=== PATIENT | female | born 1945 | race Caucasian/White ===

== ENCOUNTER 2018-09-21 09:34 | Emergency (ER) | payer OTHER ==
[~2018-09-21] VITALS: Ht 147.3 cm; Wt 72.6 kg
[~2018-09-21 09:34] MED LIST: LEVAQUIN500 MG PO; LIPITOR20 MG PO; LYRICA 50MG50 MG PO; TYLENOL WITH C1 EACH PO; Z.0.LISINOPRIL-HCT1 PO; Z.0.OMEPRAZOLE20 M1 PO; Z.0.PRAVASTATIN SOD2 PO
--- OUTSIDE RECORDS SUMMARY | 2018-09-21 09:38 | XMS REPORT | Summary of Care ---
Author Author [facility] Outpatient Imaging [facility] (formerly [facility] Outpatient Imaging [facility] Address Unknown Phone Unavailable Encounter AUDIE Rojas(SABINE) [phone] Date(s): 12/02/16 - 12/02/16 [facility] Outpatient Imaging [facility] [address] [facility], [address] [place] [address] [phone] Discharge Disposition: Home or Self Care Attending Physician: Quinn Guerrero MD Vital Signs No data available for this section Problem List Condition Effective Dates Status Health Status Informant Cystocele with vault Active prolapse(Confirmed) Hyperlipidemia(Confi Active rmed) Hypertension(Confirm Active ed) Reflux(Confirmed) Active Sleep Active apnea(Confirmed) Allergies, Adverse Reactions, Alerts Substance Reaction Severity Status Keflex Active Toradol Active Vicodin Active Medications No data available for this section Results No data available for this section Immunizations No data available for this section Procedures Procedure Date Related Diagnosis Body Site Hysterectomy Temporal artery biopsy Social History Social History Type Response Smoking Status Former smoker; Type: Cigarettes; Stopped at age: 18; Exposure to Tobacco Smoke None; Cigarette Smoking Last 365 Days No; Reg Smoking Cessation Counseling No Assessment and Plan No data available for this section
--- OUTSIDE RECORDS SUMMARY | 2018-09-21 09:38 | XMS REPORT | Summary of Care ---
Author Author [facility] Organization [facility] Address Unknown Phone Unavailable Encounter AUDIE Rojas(SABINE) [id number] Date(s): 10/24/14 - 10/25/14 [facility] [address] [employer] provided by [employer] [place] [address]- Discharge Disposition: Home Attending Physician: Michelle Brooks MD Admitting Physician: Michelle Brooks MD Referring Physician: Michelle Brooks MD Vital Signs 1 2 3 Most recent to oldest [Reference Range]: 147.32 cm (10/24/14 5:48 AM) 147.32 cm (10/13/14 2:47 PM) Height 1 2 3 Most recent to oldest [Reference Range]: 98.0 DegF (10/25/14 7:38 AM) 97.8 DegF (10/25/14 3:15 AM) 99 DegF (10/24/14 11:15 PM) Temperature Oral [96.4-99.1 DegF] 1 2 3 Most recent to oldest [Reference Range]: 154/82 mmHg *HI* (10/25/14 7:38 AM) 115/65 mmHg (10/25/14 3:15 AM) 134/69 mmHg (10/24/14 11:15 PM) Blood Pressure [90-140/60-90 mmHg] 1 2 3 Most recent to oldest [Reference Range]: 18 BRMIN (10/25/14 7:38 AM) 18 BRMIN (10/25/14 3:15 AM) 18 BRMIN (10/24/14 11:15 PM) Respiratory Rate [14-20 BRMIN] 1 2 3 Most recent to oldest [Reference Range]: 93 bpm (10/25/14 7:38 AM) 98 bpm (10/25/14 3:15 AM) 103 bpm *HI* (10/24/14 11:15 PM) Peripheral Pulse Rate [60-100 bpm] 1 2 3 Most recent to oldest [Reference Range]: 72.273 kg (10/24/14 5:48 AM) 72.273 kg (10/13/14 2:47 PM) Weight 1 2 3 Most recent to oldest [Reference Range]: 33.3 m2 (10/24/14 5:48 AM) 33.3 m2 (10/13/14 2:47 PM) Body Mass Index Problem List Condition Effective Dates Status Health Status Informant Cystocele with vault Active prolapse(Confirmed) Hyperlipidemia(Confi Active rmed) Hypertension(Confirm Active ed) Reflux(Confirmed) Active Sleep Active apnea(Confirmed) Allergies, Adverse Reactions, Alerts Substance Reaction Severity Status Keflex Active Toradol Active Vicodin Active Medications acetaminophen 1,000 mg, 100 mL, Route: IV, Drug form: INJ, Q6H, Dosing Weight 72.273, kg, PRN Pain 1-3/Temp > 100.4 F, Start date: 10/24/14 11:10:00, Duration: 30 day, Stop date: 11/23/14 11:09:00 Notes: Infuse over 15 minutesDo not exceed 4gm/day of acetaminophen MEDICAT ION WASTE Product Size: 1000 mgProduct Wasted: ___ mg Start Date: 10/24/14 Stop Date: 10/25/14 Status: Discontinued docusate 100 mg, 1 cap, Route: PO, Drug form: CAP, BID, Dosing Weight 72.273, kg, Start d ate: 10/24/14 17:00:00, Duration: 30 day, Stop date: 11/23/14 9:00:00 Notes: (Same as: Colace) (Do Not Crush) Start Date: 10/24/14 Stop Date: 10/25/14 Status: Discontinued docusate sodium 100 mg oral capsule 100 mg=1 cap, PO, BID, # 60 cap, 3 Refill(s) Start Date: 10/25/14 Status: Ordered flumazenil 0.2 mg, 2 mL, Route: IVP, Drug form: INJ, PRN, Dosing Weight 72.273, kg, PRN Jessee zodiazepine Reversal, Initial dose, Start date: 10/24/14 11:19:00, Duration: 30 day, Stop date: 11/23/14 11:18:00 Notes: (Same as: Romazicon) Start Date: 10/24/14 Stop Date: 10/24/14 Status: Discontinued Lactated Ringers Injection IV 1,000 mL 1,000 mL, Rate: 125 ml/hr, Infuse over: 8 hr, Route: IV, Dosing Weight 72.273 kg , Total Volume: 1,000, Start date: 10/24/14 11:10:00, Duration: 30 day, Stop jacquelyn e: 11/23/14 11:09:00 Start Date: 10/24/14 Stop Date: 10/25/14 Status: Discontinued Levaquin 500 mg, Route: IVPB, ONCE, Dosing Weight 72.273, kg, Start date: 10/24/14 7:55:0 0, Stop date: 10/24/14 7:55:00 Start Date: 10/24/14 Stop Date: 10/24/14 Status: Completed Levaquin 500 mg, 100 mL, Route: IVPB, Drug form: INJ, [id number], Dosing Weight 72.273, kg, Start date: 10/25/14 8:00:00, Duration: 30 day, Stop date: 11/23/14 8:00:00 Notes: (Same as:Levaquin) Start Date: 10/25/14 Stop Date: 10/25/14 Status: Discontinued Lovenox 40 mg, 0.4 mL, Route: SUB-Q, Drug form: INJ, [id number], Dosing Weight 72.273, kg, Start date: 10/25/14 8:00:00, Duration: 30 day, Stop date: 11/23/14 8:00:00 Notes: (Same as: Lovenox) Start Date: 10/25/14 Stop Date: 10/25/14 Status: Discontinued Macrobid 100 mg oral capsule 100 mg=1 cap, PO, BID, X 10 day, # 20 cap, 2 Refill(s) Start Date: 10/25/14 Stop Date: 11/24/14 Status: Ordered metroNIDAZOLE (SCIP) 500 mg, 100 mL, Route: IVPB, Drug form: INJ, ONCE, Dosing Weight 72.273, kg, Sta rt date: 10/24/14 7:55:00, Stop date: 10/24/14 7:55:00 Notes: (Same as: Shahnaz) Avoid alcohol. Start Date: 10/24/14 Stop Date: 10/24/14 Status: Completed metroNIDAZOLE (SCIP) 500 mg, 100 mL, Route: IVPB, Drug form: INJ, Q8H, Dosing Weight 72.273, kg, Star t date: 10/24/14 16:00:00, Duration: 3 doses or times, Stop date: 10/25/14 8:00: 00 Notes: (Same as: Shahnaz) Avoid alcohol. Start Date: 10/24/14 Stop Date: 10/25/14 Status: Completed morphine Sulfate 1 mg, 0.5 mL, Route: IVP, Drug form: INJ, Q4H, Dosing Weight 72.273, kg, PRN Justin n Score 6-10, Start date: 10/24/14 17:29:00, Duration: 30 day, Stop date: 17:28:00 Notes: (Same as:MORPhine Sulfate) Start Date: 10/24/14 Stop Date: 10/25/14 Status: Discontinued morphine Sulfate 1 mg, 0.5 mL, Route: IVP, Drug form: INJ, Q5Min, Dosing Weight 72.273, kg, PRN P ain Score 4-6, Start date: 10/24/14 11:19:00, Duration: 5 doses or times, Stop d ate: 10/25/14 0:00:00 Notes: (Same as:MORPhine Sulfate) Start Date: 10/24/14 Stop Date: 10/24/14 Status: Completed naloxone 0.04 mg, 0.1 mL, Route: IVP, Drug form: INJ, Q2MIN, Dosing Weight 72.273, kg, AK N Narcotic Reversal, Start date: 10/24/14 11:19:00, Duration: 8 doses or times, Stop date: 10/25/14 0:00:00 Notes: Same as Narcan Start Date: 10/24/14 Stop Date: 10/24/14 Status: Discontinued omeprazole 20 mg, Route: PO, Drug form: ECCAP, BID-Before Meals, Dosing Weight 72.273, kg, Start date: 10/25/14 7:30:00, Duration: 30 day, Stop date: 11/23/14 16:30:00 Start Date: 10/25/14 Stop Date: 10/25/14 Status: Deleted ondansetron 4 mg, Route: IVP, ONCE, Dosing Weight 72.273, kg, PRN Nausea & Vomiting, Start date: 10/24/14 11:19:00 Start Date: 10/24/14 Stop Date: 10/24/14 Status: Completed Phenergan 6.25 mg, Route: IVPB, ONCE, Dosing Weight 72.273, kg, Start date: 10/24/14 11:58 :00, Stop date: 10/24/14 11:58:00 Start Date: 10/24/14 Stop Date: 10/24/14 Status: Completed Protonix 40 mg, 1 tab, Route: PO, Drug form: ECTAB, BID, Start date: 10/25/14 9:00:00, Du ration: 30 day, Stop date: 11/23/14 17:00:00 Notes: Tablet should not be chewed or crushed.(Same as: Protonix) Start Date: 10/25/14 Stop Date: 10/25/14 Status: Discontinued Pyridium 100 mg oral tablet 100 mg=1 tab, PO, TID, PRN Dysuria, X 10 day, # 40 tab, 1 Refill(s) Start Date: 10/25/14 Stop Date: 11/14/14 Status: Ordered tramadol 50 mg, 1 tab, Route: PO, Drug form: TAB, Q8H, Dosing Weight 72.273, kg, PRN Pain Score 4-6, Start date: 10/24/14 11:10:00, Duration: 48 hr, Stop date: 10/26/14 11:09:00 Notes: Not to exceed 400mg/day. (Same As: Ultram) Start Date: 10/24/14 Stop Date: 10/25/14 Status: Discontinued tramadol 50 mg oral tablet 50 mg=1 tab, PO, Q8H, PRN Pain Score 4-6, # 40 tab, 0 Refill(s) Start Date: 10/25/14 Stop Date: 11/14/14 Status: Ordered Tylenol 325 mg oral tablet 650 mg=2 tab, PO, Q4H, 0 Refill(s) Start Date: 10/24/14 Status: Ordered Results BLOOD BANK RESULTS 1 2 3 Most recent to oldest [Reference Range]: A POS *Unknown* (10/24/14 6:00 AM) ABO/Rh Negative (10/24/14 6:00 AM) Antibody Scrn ELECTROLYTES 1 2 3 Most recent to oldest [Reference Range]: 144 mEq/L (10/25/14 3:35 AM) 140 mEq/L (10/24/14 11:22 AM) 140 mEq/L (10/24/14 8:30 AM) Sodium Lvl [135-145 mEq/L] 3.9 mEq/L (10/25/14 3:35 AM) 3.3 mEq/L *LOW* (10/24/14 11:22 AM) 4.2 mEq/L (10/24/14 8:30 AM) Potassium Lvl [3.5-5.1 mEq/L] 108 mEq/L (10/25/14 3:35 AM) 107 mEq/L (10/24/14 11:22 AM) 108 mEq/L (10/24/14 8:30 AM) Chloride Lvl [95-109 mEq/L] 28 mEq/L (10/25/14 3:35 AM) 23 mEq/L *LOW* (10/24/14 11:22 AM) 24 mEq/L (10/24/14 8:30 AM) CO2 [24-32 mEq/L] 11.9 mEq/L (10/25/14 3:35 AM) 13.3 mEq/L (10/24/14 11:22 AM) 12.2 mEq/L (10/24/14 8:30 AM) AGAP [10.0-20.0 mEq/L] CHEM PANEL 1 2 3 Most recent to oldest [Reference Range]: 1.2 mg/dL (10/25/14 3:35 AM) 1.2 mg/dL (10/24/14 11:22 AM) 1.0 mg/dL (10/24/14 8:30 AM) Creatinine Lvl [0.5-1.4 mg/dL] 46 mL/min/1.73m2 1 *NA* (10/25/14 3:35 AM) 46 mL/min/1.73m2 2 *NA* (10/24/14 11:22 AM) 57 mL/min/1.73m2 3 *NA* (10/24/14 8:30 AM) eGFR 10 mg/dL (10/25/14 3:35 AM) 12 mg/dL (10/24/14 11:22 AM) 12 mg/dL (10/24/14 8:30 AM) BUN [7-22 mg/dL] 10 (10/24/14 11:22 AM) B/C Ratio [6-25] 106 mg/dL *HI* (10/25/14 3:35 AM) 136 mg/dL *HI* (10/24/14 11:22 AM) 116 mg/dL *HI* (10/24/14 8:30 AM) Glucose Lvl [70-99 mg/dL] 5.7 g/dL *LOW* (10/24/14 11:22 AM) Total Protein [6.4-8.4 g/dL] 2.9 g/dL *LOW* (10/24/14 11:22 AM) Albumin Lvl [3.5-5.0 g/dL] 2.8 g/dL (10/24/14 11:22 AM) Globulin [2.0-4.0 g/dL] 1.0 (10/24/14 11:22 AM) A/G Ratio [0.7-1.6] 8.0 mg/dL *LOW* (10/25/14 3:35 AM) 8.0 mg/dL *LOW* (10/24/14 11:22 AM) 8.7 mg/dL (10/24/14 8:30 AM) Calcium Lvl [8.5-10.5 mg/dL] 21 unit/L (10/24/14 11:22 AM) ALT [0-65 unit/L] 17 unit/L (10/24/14 11:22 AM) AST [0-37 unit/L] 67 unit/L (10/24/14 11:22 AM) Alk Phos [39-136 unit/L] 0.6 mg/dL (10/24/14 11:22 AM) Bili Total [0.2-1.3 mg/dL] 1Result Comment: The eGFR is calculated using the CKD-EPI formula. In most young, healthy individuals the eGFR will be >90 mL/min/1.73m2. The eGFR declines with age. An eGFR of 60-89 may be normal in some populations, particularly the elderly, for whom the CKD-EPI formula has not been extensively validated. Use of the eGFR is not recommended in the following populations: Individuals with unstable creatinine concentrations, including patients and those with serious co-morbid conditions. Patients with extremes in muscle mass or diet. The data above are obtained from the National Kidney Disease Education Program ( NKDEP) which additionally recommends that when the eGFR is used in patients with extremes of body mass index for purposes of drug dosing, the eGFR should be mul tiplied by the estimated BMI. 2Result Comment: The eGFR is calculated using the CKD-EPI formula. In most young, healthy individuals the eGFR will be >90 mL/min/1.73m2. The eGFR declines with age. An eGFR of 60-89 may be normal in some populations, particularly the elderly, for whom the CKD-EPI formula has not been extensively validated. Use of the eGFR is not recommended in the following populations: Individuals with unstable creatinine concentrations, including patients and those with serious co-morbid conditions. Patients with extremes in muscle mass or diet. The data above are obtained from the National Kidney Disease Education Program ( NKDEP) which additionally recommends that when the eGFR is used in patients with extremes of body mass index for purposes of drug dosing, the eGFR should be mul tiplied by the estimated BMI. 3Result Comment: The eGFR is calculated using the CKD-EPI formula. In most young, healthy individuals the eGFR will be >90 mL/min/1.73m2. The eGFR declines with age. An eGFR of 60-89 may be normal in some populations, particularly the elderly, for whom the CKD-EPI formula has not been extensively validated. Use of the eGFR is not recommended in the following populations: Individuals with unstable creatinine concentrations, including patients and those with serious co-morbid conditions. Patients with extremes in muscle mass or diet. The data above are obtained from the National Kidney Disease Education Program ( NKDEP) which additionally recommends that when the eGFR is used in patients with extremes of body mass index for purposes of drug dosing, the eGFR should be mul tiplied by the estimated BMI. IMMUNOLOGY 1 2 3 Most recent to oldest [Reference Range]: Negative *NA* (10/13/14 2:10 PM) HIV 1/2 Ab [Negative] Negative *NA* (10/13/14 2:10 PM) Hep Bs Ag [Negative] Negative *NA* (10/13/14 2:10 PM) Hep B Core IgM [Negative] Negative *NA* (10/13/14 2:10 PM) Hep A IgM [Negative] Negative *NA* (10/13/14 2:10 PM) Hep C Ab HEMATOLOGY 1 2 3 Most recent to oldest [Reference Range]: 6.9 K/CMM (10/25/14 3:35 AM) 13.3 K/CMM *HI* (10/24/14 11:22 AM) 5.1 K/CMM (10/24/14 8:30 AM) WBC [3.7-10.4 K/CMM] 3.31 M/CMM *LOW* (10/25/14 3:35 AM) 3.98 M/CMM *LOW* (10/24/14 11:22 AM) 3.51 M/CMM *LOW* (10/24/14 8:30 AM) RBC [4.20-5.40 M/CMM] 10.0 g/dL *LOW* (10/25/14 3:35 AM) 11.7 g/dL *LOW* (10/24/14 11:22 AM) 10.5 g/dL *LOW* (10/24/14 8:30 AM) Hgb [12.0-16.0 g/dL] 29.5 % *LOW* (10/25/14 3:35 AM) 35.7 % *LOW* (10/24/14 11:22 AM) 31.7 % *LOW* (10/24/14 8:30 AM) Hct [36.0-48.0 %] 89.3 fL (10/25/14 3:35 AM) 89.6 fL (10/24/14 11:22 AM) 90.4 fL (10/24/14 8:30 AM) MCV [80.0-98.0 fL] 30.2 pg (10/25/14 3:35 AM) 29.3 pg (10/24/14 11:22 AM) 30.0 pg (10/24/14 8:30 AM) MCH [27.0-31.0 pg] 33.8 g/dL (10/25/14 3:35 AM) 32.7 g/dL (10/24/14 11:22 AM) 33.2 g/dL (10/24/14 8:30 AM) MCHC [32.0-36.0 g/dL] 13.4 % (10/25/14 3:35 AM) 13.2 % (10/24/14 11:22 AM) 13.4 % (10/24/14 8:30 AM) RDW [11.5-14.5 %] 192 K/CMM (10/25/14 3:35 AM) 220 K/CMM (10/24/14 11:22 AM) 229 K/CMM (10/24/14 8:30 AM) Platelet [133-450 K/CMM] 8.1 fL (10/25/14 3:35 AM) 8.5 fL (10/24/14 11:22 AM) 8.2 fL (10/24/14 8:30 AM) MPV [7.4-10.4 fL] 69.4 % (10/25/14 3:35 AM) 74.0 % (10/24/14 11:22 AM) 49.3 % (10/24/14 8:30 AM) Segs [45.0-75.0 %] 10.0 % (10/24/14 11:22 AM) Bands [0.0-11.0 %] 18.8 % *LOW* (10/25/14 3:35 AM) 10.0 % *LOW* (10/24/14 11:22 AM) 41.0 % *HI* (10/24/14 8:30 AM) Lymphocytes [20.0-40.0 %] 0.0 % (10/24/14 11:22 AM) Atypical Lymphs [<=0.0 %] 7.4 % (10/25/14 3:35 AM) 6.0 % (10/24/14 11:22 AM) 8.4 % (10/24/14 8:30 AM) Monocytes [2.0-12.0 %] 4.3 % *HI* (10/25/14 3:35 AM) 0.7 % (10/24/14 8:30 AM) Eosinophils [0.0-4.0 %] 0.1 % (10/25/14 3:35 AM) 0.6 % (10/24/14 8:30 AM) Basophils [0.0-1.0 %] 4.8 K/CMM (10/25/14 3:35 AM) 11.2 K/CMM *HI* (10/24/14 11:22 AM) 2.5 K/CMM (10/24/14 8:30 AM) Segs-Bands # [1.5-8.1 K/CMM] 1.3 K/CMM (10/25/14 3:35 AM) 1.3 K/CMM (10/24/14 11:22 AM) 2.1 K/CMM (10/24/14 8:30 AM) Lymphocytes # [1.0-5.5 K/CMM] 0.5 K/CMM (10/25/14 3:35 AM) 0.8 K/CMM (10/24/14 11:22 AM) 0.4 K/CMM (10/24/14 8:30 AM) Monocytes # [0.0-0.8 K/CMM] 0.3 K/CMM (10/25/14 3:35 AM) Eosinophils # [0.0-0.5 K/CMM] Normal (10/24/14 11:22 AM) RBC Morph Normal (10/24/14 11:22 AM) Plt Morph 13.6 seconds (10/13/14 2:10 PM) PT [12.0-14.7 seconds] 1.04 (10/13/14 2:10 PM) INR [0.85-1.17] 28.8 seconds (10/24/14 11:22 AM) 31.6 seconds (10/13/14 2:10 PM) PTT [22.9-35.8 seconds] Immunizations No data available for this section Procedures Procedure Date Related Diagnosis Body Site Hysterectomy Temporal artery biopsy Social History Social History Type Response Smoking Status Former smoker; Type: Cigarettes; Stopped at age: 18; Exposure to Tobacco Smoke None; Cigarette Smoking Last 365 Days No; Reg Smoking Cessation Counseling No Assessment and Plan Extracted from: Title: TELE RN progress Note Author: Michaela Manjarrez MD Date: 10/25/14 R3 TELE RN Progress Note S: Patient doing well this morning. No complaints. passing flatus. Patient is ambulating slowly in the room. Pain well controlled on po meds O: VitalsTmp(F)Tmp(C)[id number] 10/25 03:1597.836.84onlg692/65---[id number] 2.0L/m--- 10/24 23:072056.72vjel703/69---[id number] 2.0L/m--- 10/24 20:090042.79irhm523/69---[id number] 2.0L/m--- 10/24 15:4297.036.99nqtp479/75---88--97 2.0L/m--- 10/24 13:4794.434.00gfvo927/58---68--100 2.0L/m--- 24 Hr Tmax: 99F (37.22c) at 10/24 23:1524 Hr Tmin: 94.4F (34.67c) at 10/24 13:47 36 Hr Tmax: 99F (37.22c) at 10/24 23:1536 Hr Tmin: 94.4F (34.67c) at 10/24 13:47 Vital Signs are the last 5 in the past 48 hours. Weights are the last 5 in 60 days, plus initial. Gen: A/O x 3, NAD CVS: RRR RESP: CTAB ABD: soft, NT, ND, no guarding or rebound tenderness : Yates in place, draining appropriate clear yellow urine. Vaginal packing removed. Minimal blood dried on the packing. Labs: Hgb 10 K: 3.9 Cr: 1.0 intraop-->1.2 immediate post op-->1.2 this morning A/P: Ms. Alcantara is POD#1 s/p Anterior Repair, Right Oophorectomy, Uterosacral Suspension, Cystoscopy, doing well. 1. Post Op Day #1 -Hgb 11.7--> EBL 100cc-->pending in AM -Had hypotensive episode intraoperatively in which she received phenylephrine and norepinephrine -->currently normotensive -Became hypothermic post op with a temp of 94, warm IVF and bear hugger were placed, currently stable and normothermic -pain moderately controlled on tramadol, with morphine 1mg q4hr prn for severe breakthrough pain -UOP ~100cc/hr -Failed voiding trial this morning-->backfilled 300cc, voided 30cc, and then straight cath had 300cc return. -->to go home with leg bag -patient to go home on estrace cream for 6 weeks -tolerating regular diet 2. Hypertension -Will hold meds until DC 3. Continue routine post op care. DC home today DW Dr. Brooks Addendum pt doing well, tolerated regular diet , ambulating well, no weakness, no dizziness, by passing flatus Todd, Vitals stable, H/H 12/30 Cr 1.2 Michelle ROWLEY Pa: babar esqueda BS, NT,ND, No CVA tenderness on Pt failed voiding trial filled 300 cc void 300 cc PVR 300 cc 10/25/2014 DC home with yates & leg bag 12:40 DC instructions given Post op care discussed with pt & in details Follow up in1 week Extracted from: Title: Clinical Document Author: Michelle Brooks MD Date: 10/24/14 R2 Pre-Op CC: Scheduled cystocele repair, TOT, vault suspension, possible oophorectomy and cystoscopy History of Present Illness 68y/o w/ hx of hyperparathyroidism, HTN, CKD s/p MAYA/LSO in 1983 uterine fibroids presents today for scheduled cystocele repair, TOT, vault suspension, possible oophorectomy and cystoscopy. Pt was seen by Dr. Brooks on 08/05/2014 for a cystocele. Pt feels bulge & pressure. Pt feels uncomfortable sitting with the bulge. Pt feels she voids well. Pt has to sit for some time to empty but feels empty at the end of it. Pt denies UTIs. Pt Voids every 2 hrs during the day & night. Pt feels bladder pressure & voids frequently. Pt says he may have occassional leakage with urgency. PT denies ОЛЕГ. No hematuria. No dysuria. Intake: Coffee 2-3 cups water 4 glasses. Pt has thought about her options and desires to proceed with surgery. Pt was told she has simple cyst in her Rt ovary and will like her Rt ovary removed if possible. Pt was seen by Dr Huizar recently and was told she had a stable rt ovarian cyst on US 08/14 and no other work up needed. HCM: Mammogram that was normal in 02/13, documented Colonoscopy in 04/16/2011 Cystometry: Void 400 cc PVR 115 cc Pdet max 20 Q max 16 Prolonged slow void Echo 06/22/2014: EF 60-64% with impaired LV relaxation, concentric LV hypertrophy Stress Test 06/24/2014: wnl Pelvic sono 08/2013: 2.4cm R ovarian cyst Active Problems Anterior chest wall pain (786.52) (R07.1) Bladder disorder (596.9) (N32.9) Chiari malformation type I (348.4) (G93.5) Chronic back pain (724.5,338.29) (M54.9,G89.29) Chronic kidney disease, stage III (moderate) (585.3) (N18.3) Chronic osteoarthritis (715.90) (M19.90) Classic migraine with aura (346.00) (G43.109) Cystocele, midline (618.01) (N81.11) Esophageal reflux (530.81) (K21.9) Essential (primary) hypertension (401.9) (I10) Foot pain, left (729.5) (M79.672) Hypercholesterolemia (272.0) (E78.0) Hyperlipidemia (272.4) (E78.5) Hyperparathyroidism (252.00) (E21.3) Leg edema, left (782.3) (R60.0) Lumbar spinal stenosis (724.02) (M48.06) Ovarian cyst, right (620.2) (N83.20) Pain, joint, ankle and foot (719.47) (M25.579) Palpitations (785.1) (R00.2) Pelvic mass in female (789.30) (R19.00) Preop examination (V72.84) (Z01.818) Sleep apnea (780.57) (G47.30) Stye (373.11) (H00.019) Thyroid nodule (241.0) (E04.1) Urinary symptom or sign (788.99) (R39.9) Vitamin D insufficiency (268.9) (E55.9) Allergies Toradol Oral TABS Vicodin TABS Keflex TABS Current Meds Acetaminophen 500 MG Oral Tablet; TAKE 1 TABLET DAILY PRN; Therapy: (Recorded:[id number]) to Recorded Acetaminophen-Codeine 300-30 MG Oral Tablet; TAKE 1 TABLET BY MOUTH 3 TIMES A DAY NEEDED FOR PAIN; Therapy: 21Sep2014 to (Evaluate:[id number]); Last Rx:[id number] Ordered Atorvastatin Calcium 20 MG Oral Tablet; TAKE 1 TABLET DAILY AT BEDTIME. Replacing Pravastatin; Therapy: 08Aug2014 to (Last Rx:08Aug2014) Ordered Calcium 500 MG Oral Tablet; TAKE 1 TABLET with Main Meal of the day; Therapy: (Recorded:08Aug2014) to Recorded CoQ-10 50 MG Oral Capsule; TAKE 1 CAPSULE DAILY; Therapy: (Recorded:31May2014) to Recorded Lisinopril 20 MG Oral Tablet; TAKE 1 TABLET BY MOUTH DAILY; Therapy: 26Jan2013 to (Evaluate:26Dec2014) Requested for: 29Jun2014; Last Rx:29Jun2014; Status: ACTIVE - Retrospective Authorization Ordered Metoprolol Succinate ER 25 MG Oral Tablet Extended Release 24 Hour; TAKE 1 TABLET BY MOUTH DAILY; Therapy: 20May2012 to (Evaluate:[id number]) Requested for: 26Aug2014; Last Rx:26Aug2014; Status: ACTIVE - Retrospective Authorization Ordered Multi-Vitamin Oral Tablet; TAKE 1 TABLET DAILY; Therapy: (Recorded:12Jan2014) to Recorded Omeprazole 20 MG Oral Capsule Delayed Release; TAKE ONE CAPSULE BY MOUTH TWICE DAILY; Therapy: 14Dec2012 to (Evaluate:[id number]) Requested for: 28Jun2014; Last Rx:28Jun2014; Status: ACTIVE - Retrospective Authorization Ordered Premarin 0.625 MG/GM Vaginal Cream; Use 1 applicator intravaginally twice per week; Therapy: 05Aug2014 to (Evaluate:[id number]) Requested for: 09Aug2014; Last Rx:09Aug2014; Status: ACTIVE - Retrospective Authorization Ordered Probiotic Oral Capsule; TAKE 1 CAPSULE DAILY; Therapy: (Recorded:28Jan2012) to Recorded Vitamin D3 5000 UNIT Oral Capsule; 1 a day; Therapy: [id number] to Recorded Immunizations Influenza --- Series1: [id number]; Series2: [id number]; Series3: [id number] Past Medical History Denied: History of Diabetes Mellitus Denied: History of Nephrolithiasis Denied: History of Pancreatitis Denied: History of Reported A Previous Medical History Of Fracture Surgical History History of Biopsy Temporal Artery History of Hysterectomy History of Tonsillectomy Family History Family history of Congestive Heart Failure Family history of Diabetes Mellitus (V18.0) Family history of Diabetes Mellitus (V18.0) Family history of Diabetes Mellitus (V18.0) Family history of Benign Neoplasm Of The Parathyroid Gland Family history of Diabetes Mellitus (V18.0) Family history of Renal Carcinoma (V16.51) Family history of Thyroid Cancer Family history of cardiac disorder (V17.49) (Z82.49) History of coronary artery stent placement Family history of Benign Neoplasm Of The Parathyroid Gland Family history of Congestive Heart Failure Family history of Diabetes Mellitus (V18.0) Family history of Thyroid Cancer Social History Denied: History of Drug use Former smoker (V15.82) (Z87.891) Marital History - Currently Never Drank Alcohol Non-smoker for personal reasons (Z78.9) Vitals defer to pre-Op Physical Exam (10/13/2014) Vagina and external genitalia: Normal. Urethra: Normal. Urethral meatus: Normal. Cystocele grade 2-3. Vaginal vault prolapse grade 2. Rectocele grade 1. Void 400 cc PVR 30 cc Discussion/Summary 68y/o w/ hx of hyperparathyroidism, HTN, CKD s/p MAYA/LSO in 1983 uterine fibroids presents today for scheduled cystocele repair, TOT, vault suspension, possible oophorectomy and cystoscopy 1. Scheduled procedure: Dr. Brooks discussed the procedure with the patient including the risk of bleeding , infection, trauma to bladder , bowel, ureters, urethra, nerves & vessels. The risk of retention, recurrence, reoperation, pain & dyspareunia were also discussed. Pt understands that she may need incontinence surgery in future. It was explained to pt that we may not be able to remove post menopausal ovary vaginally. Pt does not want laparoscopy for oophorectomy as was told it is a simple cyst. Pt will like oophorectomy if it can be done easily though the vagina Plan is for cystocele repair,Vault suspension possible oophorectomy, , cystoscopy & all other indicated procedures. 2. HTN: Pt on lisinopril and metoprolol as above. She is followed by [facility] 3. CKD: Cr 09/26 of 1.13. Will get repeat CMP prior to surgery 4. HLD: pt on atorvastatin 5. Hyperparathyroidism: followed by endocrine. Controlled with dietary phosphate restriction, oral calcium and Vit D. 6. HCM: up to date on colonoscopy and mammogram. Pap smears no longer indicated Tonja Pan MD PGY2
--- OUTSIDE RECORDS SUMMARY | 2018-09-21 09:38 | XMS REPORT | Summary of Care ---
Author Author [facility] Outpatient Imaging [facility] Outpatient [facility] [place] Address Unknown Phone Unavailable Encounter AUDIE Rojas(SABINE) [id number] Date(s): 08/07/16 - 08/07/16 [facility] Outpatient [facility] [place] [address] [address] [address] [facility] [address] [facility], [address] [place], [place] [address]- [phone] Discharge Disposition: Home or Self Care Attending Physician: Marilu Edmonds MD Vital Signs No data available for [...]
--- OUTSIDE RECORDS SUMMARY | 2018-09-21 09:38 | XMS REPORT | Summary of Care ---
Author Author [facility] [place] Organization [facility] [place] Address Unknown Phone Unavailable Encounter AUDIE Rojas(FIN) [id number] Date(s): 08/05/17 - 08/05/17 [facility] [place] [address] [place] [phone] Discharge Disposition: Home or Self Care Attending Physician: Quinn Guerrero MD Vital Signs No data available for this section Problem List Condition Effective Dates Status Health Status Informant Cystocele with vault Active prolapse(Confirmed) Hyperlipidemia(Confi Active rmed) Hypertension(Confirm Active ed) Reflux(Confirmed) Active Sleep Active apnea(Confirmed) Allergies, Adverse Reactions, Alerts Substance Reaction Severity Status Toradol Active Keflex Active Vicodin Active Medications No data available for this section Results No data available for this section Immunizations No data available for this section Procedures Procedure Date Related Diagnosis Body Site Status Hysterectomy Completed Temporal artery biopsy Completed Social History Social History Type Response Smoking Status Former smoker; Type: Cigarettes; Exposure to Tobacco Smoke None; Cigarette Smoking Last 365 Days No; Reg Smoking Cessation Counseling No; Stopped at age: 18; entered on: 10/24/14 Assessment and Plan No data available for this section
--- OUTSIDE RECORDS SUMMARY | 2018-09-21 09:38 | XMS REPORT ---
Author Author [facility] Address Unknown Phone Unavailable Care Team Providers Care Stock Control Supervisor Name Role Phone Keith VENCES Unavailable Unavailable Problems This patient has no known problems. Allergies, Adverse Reactions, Alerts This patient has no known allergies or adverse reactions. Medications This patient has no known medications. Results Test Description Test Time Test Comments Text Results Atomic Results Result Comments SCR MAMM BILATERAL TEVIN CAD DIGITAL 2018-03-02 11:26:21 - SCR MAMM BILATERAL TEVIN CAD DIGITALBILATERAL DIGITAL SCREENING MAMMOGRAM 3D/2D WITH CAD: 03/02/2018CLINICAL: Asymptomatic. Digital breast tomosynthesis was performed in addition to routine CC and MLO views. Current mammographic images were evaluated by either a [employer] M-Vu or a [employer] ImageChecker CAD (computer aided detection system). Comparison is made to exams dated 02/28/2017 mammogram, mammogram, and 03/01/2015 mammogram - [facility]. The tissue of both breasts is predominantly fatty. No suspicious mass, architectural distortion, malignant type calcification, or lymph node abnormality detected. Breast architecture is stable compared to prior exams.IMPRESSION: NEGATIVEThere is no mammographic evidence of malignancy. Resume annual screening mammography in one year. Jones Wang M.D. ss/penrad:03/02/2018 11:26:21 Supervisor [facility]: Natasha CUEVAS, [facility] sent: BIRADS 1-2 Normal Mammogram BI-RADS: [address] BRAIN WO [address] [address] Patient Name: LIANET CANTOR MR #: [id number] : 1945 Age/Sex: 70/F Req #: [id number] Adm Physician: Ordered by: GILES RILEY MD Report #: [id number] Location: Room/Bed: Procedure: [id number] CT/CT BRAIN WO Exam Date: 11/26/16 Exam Time: 0010 REPORT STATUS: Signed Exams: Head and cervical spine CTs without IV contrast History: Trauma Comparison studies: None Technique: Axial images were obtained from the brain and cervical spine. Coronal and sagittal images reconstructed from the axial data. Intravenous contrast: None Findings: Head CT: Scalp: No abnormalities. Bones: No fractures, blastic or lytic lesions. Extra-axial spaces: No masses. No fluid collections. Brain sulci: Appropriate for age. Ventricles: Normal in size and configuration. No hydrocephalus. Parenchyma: No abnormal densities. No masses, acute hemorrhage, acute or chronic vascular insults. Sellar/suprasellar region: No abnormalities. Craniocervical junction: The foramen magnum is patent. No Chiari one malformation. Cervical spine CT: Fractures: None. Soft tissues: No gross abnormalities. Atlantoaxial articulation: Intact. Alignment: 2 mm anterolisthesis of C4 on C5. Cervicomedullary junction: No abnormalities. The foramen magnum is patent. Vertebrae: No infection or neoplasm. Degenerative changes: C2-C3: Mild facet arthrosis. C3- C4: Mild canal stenosis due to a central disc protrusion. Uncovertebral arthrosis and severe left and moderate right facet arthrosis with moderate left foraminal stenosis. C4-C5: Anterolisthesis of C4 on C5 with associated uncovered disc/disc osteophyte complex, uncovertebral arthrosis and severe left and moderate right facet arthrosis result in severe left and moderate right foraminal stenosis. C5-C6: Moderately degenerated disc. Disc osteophyte complex does not result in significant canal stenosis. Moderate right and mild left foraminal stenosis due to uncovertebral and facet arthrosis. C6-C7: Moderately degenerated disc. Disc osteophyte complex does not result in significant canal stenosis. Moderate bilateral foraminal stenosis due to uncovertebral arthrosis. C7-T1: Moderate bilateral facet arthrosis. Incidental findings: Atherosclerotic calcifications in the carotid siphons. An cervical carotid bulbs. Opacified, partially imaged left maxillary sinus. IMPRESSION: Head CT: 1. No intracranial abnormalities. 2. No changes from the previous head CT of 02/21/2010. Cervical spine CT: 1. No cervical spine fracture. 2. Anterolisthesis of C4 on C5 is most likely degenerative. 3. Multilevel degenerative changes as de scribed. Cannot adequately evaluate ligament, spinal cord and or vascular abnormalities on the basis of this examination. Signed by: Dr. Johanny Parsons M.D. on 11/26/2016 12:50 AM Dictated By: JOHANNY PARSONS MD Transcribed By: FREDERICK on 11/26/1649 COPY TO: GILES RILEY MD CT CERVICAL SPINE WO [place] [address] Patient Name: LINAET CANTOR MR #: [id number] : 1945 Age/Sex: 70/F Req #: [id number] Adm Physician: Ordered by: GILES RILEY MD Report #: [id number] Location: ER Room/Bed: Procedure: [id number] CT/CT CERVICAL SPINE WO Exam Date: 11/26/16 Exam Time: 0010 REPORT STATUS: Signed Exams: Head and cervical spine CTs without IV contrast History: Trauma Comparison studies: None Technique: Axial images were obtained from the brain and cervical spine. Coronal and sagittal images reconstructed from the axial data. Intravenous contrast: None Findings: Head CT: Scalp: No abnormalities. Bones: No fractures, blastic or lytic lesions. Extra-axial spaces: No masses. No fluid collections. Brain sulci: Appropriate for age. Ventricles: Normal in size and configuration. No hydrocephalus. Parenchyma: No abnormal densities. No masses, acute hemorrhage, acute or chronic vascular insults. Sellar/suprasellar region: No abnormalities. Craniocervical junction: The foramen magnum is patent. No Chiari one malformation. Cervical spine CT: Fractures: None. Soft tissues: No gross abnormalities. Atlantoaxial articulation: Intact. Alignment: 2 mm anterolisthesis of C4 on C5. Cervicomedullary junction: No abnormalities. The foramen magnum is patent. Vertebrae: No infection or neoplasm. Degenerative changes: C2-C3: Mild facet arthrosis. C3-C4: Mild canal stenosis due to a central disc protrusion. Uncovertebral arthrosis and severe left and moderate right facet arthrosis result in moderate left foraminal stenosis. C4-C5: Anterolisthesis of C4 on C5 with associated uncovered disc/disc osteophyte complex, uncovertebral arthrosis and severe left and moderate right facet arthrosis result in severe left and moderate right foraminal stenosis. C5- C6: Moderately degenerated disc. Disc osteophyte complex does not result in significant canal stenosis. Moderate right and mild left foraminal stenosis due to uncovertebral and facet arthrosis. C6-C7: Moderately degenerated disc. Disc osteophyte complex does not result in significant canal stenosis. Moderate bilateral foraminal stenosis due to uncovertebral arthrosis. C7- T1: Moderate bilateral facet arthrosis. Incidental findings: Atherosc lerotic calcifications in the carotid siphons and in the cervical carotid bulbs. Opacified, partially imaged left maxillary sinus (cannot further evaluated). IMPRESSION: Head CT: 1. No intracranial abnormalities. 2. No changes from the previous head CT of 02/21/2010. Cervical spine CT: 1. No cervical spine fracture. 2. Anterolisthesis of C4 on C5 is most likely degenerative. 3. Multilevel degenerative changes as described. Cannot adequately evaluate ligament, spinal cord and or vascular abnormalities on the basis of this examination. Signed by: Dr. Johanny Parsons M.D. on 11/26/2016 5:32 AM Dictated By: JOHANNY PARSONS MD Transcribed By: FREDERICK on 11/26/16531 COPY TO: GILES RILEY MD
--- OUTSIDE RECORDS SUMMARY | 2018-09-21 09:38 | XMS REPORT | Summary of Care ---
Author Author [facility] Outpatient Imaging [facility] Outpatient Imaging [facility] Address Unknown Phone Unavailable Encounter AUDIE Rojas(SABINE) [id number] Date(s): 07/22/16 - 07/22/16 [facility] Outpatient Imaging [facility] [address] [facility], [address] [place] [phone] Discharge Disposition: Home or Self Care Attending [...]
--- OUTSIDE RECORDS SUMMARY | 2018-09-21 09:38 | XMS REPORT | Continuity of Care Document ---
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 07/22/2016 [facility] CYSTOCELE Active 08/05/2014 [facility] Cystocele with vault prolapse Active Problem 08/08/2017 [facility], [facility] [place], [facility] [place], [facility] [place] Hyperlipidemia Active Problem 08/08/2017 [facility], [facility] [place], [facility] [place], [facility] [place] Hypertension Active Problem 08/08/2017 [facility], [facility] [place], [facility] [place], [facility] [place] Reflux Active Problem 08/08/2017 [facility], [facility] [place], [facility] [place], [facility] [place] Sleep apnea Active Problem 08/08/2017 [facility], [facility] [place], [facility] [place], [facility] [place] CYSTOCELE, MIDLINE Active [facility] Medications Medication Details Route Status Patient Instructions Ordering Provider Order Date Source Phenazopyridine hydrochloride 100 MG Oral Tablet [Pyridium] 100 mg=1 tab, PO, TID, PRN Dysuria, X 10 day, # 40 tab, 1 Refill(s) Active 10/25/2014 [facility] Nitrofurantoin 100 MG Oral Capsule [Macrobid] 100 mg=1 cap, PO, BID, X 10 day, # 20 cap, 2 Refill(s) Active 10/25/2014 [facility] tramadol hydrochloride 50 MG Oral Tablet 50 mg=1 tab, PO, Q8H, PRN Pain Score 4-6, # 40 tab, 0 Refill(s) Active 10/25/2014 [facility] docusate sodium 100 mg oral capsule 100 mg=1 cap, PO, BID, # 60 cap, 3 Refill(s) Active 10/25/2014 [facility] Protonix 40 mg, 1 tab, Route: PO, Drug form: ECTAB, BID, Start date: 10/25/14 9:00:00, Duration: 30 day, Stop date: 11/23/14 17:00:00Notes: Tablet should not be chewed or crushed. (Same as: Protonix) Inactive 10/25/2014 [facility] Lovenox 40 mg, 0.4 mL, Route: SUB-Q, Drug form: INJ, [id number], Dosing Weight 72.273, kg, Start date: 10/25/14 8:00:00, Duration: 30 day, Stop date: 11/23/14 8:00:00Notes: (Same as: Lovenox) Inactive 10/25/2014 [facility] Levaquin 500 mg, 100 mL, Route: IVPB, Drug form: INJ, [id number], Dosing Weight 72.273, kg, Start date: 10/25/14 8:00:00, Duration: 30 day, Stop date: 11/23/14 8:00:00Notes: (Same as:Levaquin) Inactive 10/25/2014 [facility] Omeprazole 20 mg, Route: PO, Drug form: ECCAP, BID-Before Meals, Dosing Weight 72.273, kg, Start date: 10/25/14 7:30:00, Duration: 30 day, Stop date: 11/23/14 16:30:00 Inactive 10/25/2014 [facility] Morphine 1 mg, 0.5 mL, Route: IVP, Drug form: INJ, Q4H, Dosing Weight 72.273, kg, PRN Pain Score 6-10, Start date: 10/24/14 17:29:00, Duration: 30 day, Stop date: 11/23/14 17:28:00Notes: (Same as:MORPhine Sulfate) No Longer Active 10/24/2014 [facility] Docusate 100 mg, 1 cap, Route: PO, Drug form: CAP, BID, Dosing Weight 72.273, kg, Start date: 10/24/14 17:00:00, Duration: 30 day, Stop date: 11/23/14 9:00:00Notes: (Same as: Colace) (Do Not Crush) No Longer Active 10/24/2014 [facility] metroNIDAZOLE (SCIP) 500 mg, 100 mL, Route: IVPB, Drug form: INJ, Q8H, Dosing Weight 72.273, kg, Start date: 10/24/14 16:00:00, Duration: 3 doses or times, Stop date: 10/25/14 8:00:00Notes: (Same as: Flagyl) Avoid alcohol. No Longer Active 10/24/2014 [facility] Phenergan 6.25 mg, Route: IVPB, ONCE, Dosing Weight 72.273, kg, Start date: 10/24/14 11:58:00, Stop date: 10/24/14 11:58:00 Inactive 10/24/2014 [facility] Flumazenil 0.2 mg, 2 mL, Route: IVP, Drug form: INJ, PRN, Dosing Weight 72.273, kg, PRN Benzodiazepine Reversal, Initial dose, Start date: 10/24/14 11:19:00, Duration: 30 day, Stop date: 11/23/14 11:18:00Notes: (Same as: Romazicon) Inactive 10/24/2014 [facility] Ondansetron 4 mg, Route: IVP, ONCE, Dosing Weight 72.273, kg, PRN Nausea & Vomiting, Start date: 10/24/14 11:19:00 Inactive 10/24/2014 [facility] Naloxone 0.04 mg, 0.1 mL, Route: IVP, Drug form: INJ, Q2MIN, Dosing Weight 72.273, kg, PRN Narcotic Reversal, Start date: 10/24/14 11:19:00, Duration: 8 doses or times, Stop date: 10/25/14 0:00:00Notes: Same as Narcan Inactive 10/24/2014 [facility] Morphine 1 mg, 0.5 mL, Route: IVP, Drug form: INJ, Q5Min, Dosing Weight 72.273, kg, PRN Pain Score 4-6, Start date: 10/24/14 11:19:00, Duration: 5 doses or times, Stop date: 10/25/14 0:00:00Notes: (Same as:MORPhine Sulfate) Inactive 10/24/2014 [facility] Tramadol 50 mg, 1 tab, Route: PO, Drug form: TAB, Q8H, Dosing Weight 72.273, kg, PRN Pain Score 4-6, Start date: 10/24/14 11:10:00, Duration: 48 hr, Stop date: 10/26/14 11:09:00Notes: Not to exceed 400mg/day. (Same As: Ultram) No Longer Active 10/24/2014 [facility] Acetaminophen 1,000 mg, 100 mL, Route: IV, Drug form: INJ, Q6H, Dosing Weight 72.273, kg, PRN Pain 1-3/Temp > 100.4 F, Start date: 10/24/14 11:10:00, Duration: 30 day, Stop date: 11/23/14 11:09:00Notes: Infuse over 15 minutes Do not exceed 4gm/day of acetaminophen MEDICATION WASTE Product Size: 1000 mg Product Wasted: ___ mg No Longer Active 10/24/2014 [facility] Calcium Chloride 0.0014 MEQ/ML / Potassium Chloride 0.004 MEQ/ML / Sodium Chloride 0.103 MEQ/ML / Sodium Lactate 0.028 MEQ/ML Injectable Solution 1,000 mL, Rate: 125 ml/hr, Infuse over: 8 hr, Route: IV, Dosing Weight 72.273 kg, Total Volume: 1,000, Start date: 10/24/14 11:10:00, Duration: 30 day, Stop date: 11/23/14 11:09:00 No Longer Active 10/24/2014 [facility] metroNIDAZOLE (SCIP) 500 mg, 100 mL, Route: IVPB, Drug form: INJ, ONCE, Dosing Weight 72.273, kg, Start date: 10/24/14 7:55:00, Stop date: 10/24/14 7:55:00Notes: (Same as: Flagyl) Avoid alcohol. Inactive 10/24/2014 [facility] Levaquin 500 mg, Route: IVPB, ONCE, Dosing Weight 72.273, kg, Start date: 10/24/14 7:55:00, Stop date: 10/24/14 7:55:00 Inactive 10/24/2014 [facility] Acetaminophen 325 MG Oral Tablet [Tylenol] 650 mg=2 tab, PO, Q4H, 0 Refill(s) Active 10/24/2014 [facility] Allergies, Adverse Reactions, Alerts Substance Category Reaction Severity Reaction type Status Date Reported Comments Source Keflex Assertion Drug allergy Active [facility] [place] Toradol Assertion Drug allergy Active [facility] [place] Vicodin Assertion Drug allergy Active [facility] [place] Immunizations No Data Provided for This Section Results Order Name Results Value Reference Range Date Interpretation Comments Source CHEM PANEL eGFR 46 10/25/2014 Result Comment: The eGFR is calculated using the [...] from the National Kidney Disease Education Program (NKDEP) which additionally recommends that when the eGFR is used in patients with extremes of body mass index for purposes of drug dosing, the eGFR should be multiplied by the estimated BMI. [facility] CHEM PANEL Chloride Lvl 108 95 - 109 10/25/2014 [facility] CHEM PANEL Sodium Lvl 144 135 - 145 10/25/2014 [facility] CHEM PANEL Potassium Lvl 3.9 3.5 - 5.1 10/25/2014 [facility] CHEM PANEL Creatinine Lvl 1.2 0.5 - 1.4 10/25/2014 [facility] CHEM PANEL Calcium Lvl 8.0 8.5 - 10.5 10/25/2014 [facility] CHEM PANEL CO2 28 24 - 32 10/25/2014 [facility] CHEM PANEL Glucose Lvl 106 70 - 99 10/25/2014 [facility] CHEM PANEL BUN 10 7 - 22 10/25/2014 [facility] CHEM PANEL AGAP 11.9 10.0 - 20.0 10/25/2014 [facility] HEMATOLOGY MPV 8.1 7.4 - 10.4 10/25/2014 [facility] HEMATOLOGY WBC 6.9 3.7 - 10.4 10/25/2014 [facility] HEMATOLOGY MCHC 33.8 32.0 - 36.0 10/25/2014 [facility] HEMATOLOGY Platelet 192 133 - 450 10/25/2014 [facility] HEMATOLOGY RDW 13.4 11.5 - 14.5 10/25/2014 [facility] HEMATOLOGY MCV 89.3 80.0 - 98.0 10/25/2014 [facility] HEMATOLOGY RBC 3.31 4.20 - 5.40 10/25/2014 [facility] HEMATOLOGY Hct 29.5 36.0 - 48.0 10/25/2014 [facility] HEMATOLOGY Hgb 10.0 12.0 - 16.0 10/25/2014 [facility] HEMATOLOGY MCH 30.2 27.0 - 31.0 10/25/2014 [facility] HEMATOLOGY Lymphocytes 18.8 20.0 - 40.0 10/25/2014 [facility] HEMATOLOGY Segs 69.4 45.0 - 75.0 10/25/2014 [facility] HEMATOLOGY Monocytes 7.4 2.0 - 12.0 10/25/2014 [facility] HEMATOLOGY Basophils 0.1 0.0 - 1.0 10/25/2014 [facility] HEMATOLOGY Eosinophils 4.3 0.0 - 4.0 10/25/2014 [facility] HEMATOLOGY Lymphocytes # 1.3 1.0 - 5.5 10/25/2014 [facility] HEMATOLOGY Segs-Bands # 4.8 1.5 - 8.1 10/25/2014 [facility] HEMATOLOGY Monocytes # 0.5 0.0 - 0.8 10/25/2014 [facility] HEMATOLOGY Eosinophils # 0.3 0.0 - 0.5 10/25/2014 [facility] CHEM PANEL A/G Ratio 1.0 0.7 - 1.6 10/24/2014 [facility] CHEM PANEL B/C Ratio 10 6 - 25 10/24/2014 [facility] CHEM PANEL Globulin 2.8 2.0 - 4.0 10/24/2014 [facility] CHEM PANEL AGAP 13.3 10.0 - 20.0 10/24/2014 [facility] CHEM PANEL eGFR 46 10/24/2014 Result Comment: The eGFR is calculated using the [...] from the National Kidney Disease Education Program (NKDEP) which additionally recommends that when the eGFR is used in patients with extremes of body mass index for purposes of drug dosing, the eGFR should be multiplied by the estimated BMI. [facility] CHEM PANEL Alk Phos 67 39 - 136 10/24/2014 [facility] CHEM PANEL Bili Total 0.6 0.2 - 1.3 10/24/2014 [facility] CHEM PANEL AST 17 0 - 37 10/24/2014 [facility] CHEM PANEL ALT 21 0 - 65 10/24/2014 [facility] CHEM PANEL Albumin Lvl 2.9 3.5 - 5.0 10/24/2014 [facility] CHEM PANEL Total Protein 5.7 6.4 - 8.4 10/24/2014 [facility] CHEM PANEL Glucose Lvl 136 70 - 99 10/24/2014 [facility] CHEM PANEL BUN 12 7 - 22 10/24/2014 [facility] CHEM PANEL Calcium Lvl 8.0 8.5 - 10.5 10/24/2014 [facility] CHEM PANEL CO2 23 24 - 32 10/24/2014 [facility] CHEM PANEL Chloride Lvl 107 95 - 109 10/24/2014 [facility] CHEM PANEL Potassium Lvl 3.3 3.5 - 5.1 10/24/2014 [facility] CHEM PANEL Sodium Lvl 140 135 - 145 10/24/2014 [facility] CHEM PANEL Creatinine Lvl 1.2 0.5 - 1.4 10/24/2014 [facility] HEMATOLOGY RBC Morph Normal (10/24/14 11:22 AM) 10/24/2014 [facility] HEMATOLOGY Plt Morph Normal (10/24/14 11:22 AM) 10/24/2014 [facility] HEMATOLOGY Atypical Lymphs 0.0 <=0.0 % 10/24/2014 [facility] HEMATOLOGY Segs-Bands # 11.2 1.5 - 8.1 10/24/2014 [facility] HEMATOLOGY Monocytes # 0.8 0.0 - 0.8 10/24/2014 [facility] HEMATOLOGY Lymphocytes # 1.3 1.0 - 5.5 10/24/2014 [facility] HEMATOLOGY Monocytes 6.0 2.0 - 12.0 10/24/2014 [facility] HEMATOLOGY Lymphocytes 10.0 20.0 - 40.0 10/24/2014 [facility] HEMATOLOGY Segs 74.0 45.0 - 75.0 10/24/2014 [facility] HEMATOLOGY Bands 10.0 0.0 - 11.0 10/24/2014 [facility] HEMATOLOGY MPV 8.5 7.4 - 10.4 10/24/2014 [facility] HEMATOLOGY Platelet 220 133 - 450 10/24/2014 [facility] HEMATOLOGY RDW 13.2 11.5 - 14.5 10/24/2014 [facility] HEMATOLOGY MCHC 32.7 32.0 - 36.0 10/24/2014 [facility] HEMATOLOGY MCH 29.3 27.0 - 31.0 10/24/2014 [facility] HEMATOLOGY Hct 35.7 36.0 - 48.0 10/24/2014 [facility] HEMATOLOGY MCV 89.6 80.0 - 98.0 10/24/2014 [facility] HEMATOLOGY RBC 3.98 4.20 - 5.40 10/24/2014 [facility] HEMATOLOGY Hgb 11.7 12.0 - 16.0 10/24/2014 [facility] HEMATOLOGY WBC 13.3 3.7 - 10.4 10/24/2014 [facility] HEMATOLOGY PTT 28.8 22.9 - 35.8 10/24/2014 [facility] CHEM PANEL eGFR 57 10/24/2014 Result Comment: The eGFR is calculated using the [...] from the National Kidney Disease Education Program (NKDEP) which additionally recommends that when the eGFR is used in patients with extremes of body mass index for purposes of drug dosing, the eGFR should be multiplied by the estimated BMI. [facility] CHEM PANEL CO2 24 24 - 32 10/24/2014 [facility] CHEM PANEL Chloride Lvl 108 95 - 109 10/24/2014 [facility] CHEM PANEL Potassium Lvl 4.2 3.5 - 5.1 10/24/2014 [facility] CHEM PANEL Calcium Lvl 8.7 8.5 - 10.5 10/24/2014 [facility] CHEM PANEL AGAP 12.2 10.0 - 20.0 10/24/2014 [facility] CHEM PANEL BUN 12 7 - 22 10/24/2014 [facility] CHEM PANEL Glucose Lvl 116 70 - 99 10/24/2014 [facility] CHEM PANEL Sodium Lvl 140 135 - 145 10/24/2014 [facility] CHEM PANEL Creatinine Lvl 1.0 0.5 - 1.4 10/24/2014 [facility] HEMATOLOGY Lymphocytes 41.0 20.0 - 40.0 10/24/2014 [facility] HEMATOLOGY Segs 49.3 45.0 - 75.0 10/24/2014 [facility] HEMATOLOGY Monocytes 8.4 2.0 - 12.0 10/24/2014 [facility] HEMATOLOGY Basophils 0.6 0.0 - 1.0 10/24/2014 [facility] HEMATOLOGY Eosinophils 0.7 0.0 - 4.0 10/24/2014 [facility] HEMATOLOGY Lymphocytes # 2.1 1.0 - 5.5 10/24/2014 [facility] HEMATOLOGY Monocytes # 0.4 0.0 - 0.8 10/24/2014 [facility] HEMATOLOGY Segs-Bands # 2.5 1.5 - 8.1 10/24/2014 [facility] HEMATOLOGY MPV 8.2 7.4 - 10.4 10/24/2014 [facility] HEMATOLOGY RBC 3.51 4.20 - 5.40 10/24/2014 [facility] HEMATOLOGY Hct 31.7 36.0 - 48.0 10/24/2014 [facility] HEMATOLOGY Hgb 10.5 12.0 - 16.0 10/24/2014 [facility] HEMATOLOGY WBC 5.1 3.7 - 10.4 10/24/2014 [facility] HEMATOLOGY Platelet 229 133 - 450 10/24/2014 [facility] HEMATOLOGY RDW 13.4 11.5 - 14.5 10/24/2014 [facility] HEMATOLOGY MCHC 33.2 32.0 - 36.0 10/24/2014 [facility] HEMATOLOGY MCH 30.0 27.0 - 31.0 10/24/2014 [facility] HEMATOLOGY MCV 90.4 80.0 - 98.0 10/24/2014 [facility] BLOOD BANK RESULTS ABO/Rh A POS 10/24/2014 [facility] BLOOD BANK RESULTS Antibody Scrn Negative (10/24/14 6:00 AM) 10/24/2014 [facility] HEMATOLOGY PTT 31.6 22.9 - 35.8 10/13/2014 [facility] HEMATOLOGY PT 13.6 12.0 - 14.7 10/13/2014 [facility] HEMATOLOGY INR 1.04 0.85 - 1.17 10/13/2014 [facility] IMMUNOLOGY HIV 1/2 Ab Negative *NA* (10/13/14 2:10 PM) Negative 10/13/2014 [facility] IMMUNOLOGY Hep B Core IgM Negative *NA* (10/13/14 2:10 PM) Negative 10/13/2014 [facility] IMMUNOLOGY Hep C Ab Negative *NA* (10/13/14 2:10 PM) 10/13/2014 [facility] IMMUNOLOGY Hep A IgM Negative *NA* (10/13/14 2:10 PM) Negative 10/13/2014 [facility] IMMUNOLOGY Hep Bs Ag Negative *NA* (10/13/14 2:10 PM) Negative 10/13/2014 [facility] Pathology Reports No Data Provided for This Section Diagnostic Reports Report Value Date Source Abdomen wo IV contrast CT Exam: CT scan of the abdomen without contrast. Reason for Exam: - R10.84 Generalized abdominal pain Comparison Exam: None Technique: Multiple axial images were obtained of the abdomen. 5 mm slices were acquired without injection of intravenous contrast. Oral contrast was given. Reformatted sagittal and coronal images were obtained for additional diagnostic information. Total exam MZX=547 mGy-cm. This exam was performed according to our departmental dose-optimization program, which includes automated exposure control, adjustment of the MA and/or KV according to patient size and/or use of iterative reconstruction technique. Discussion: Visualized portions of the lung recommend are unremarkable. Moderate-sized hiatal hernia. Note that this exam is suboptimal for evaluation of the abdominal and pelvic viscera secondary to lack of intravenous contrast. Liver is unremarkable in appearance. The gallbladder and biliary ductal system are unremarkable. Pancreas, adrenal glands, and spleen are within normal limits. Kidneys unremarkable. No hydronephrosis. No dilated loops of bowel. Mild amount of stool seen within the large bowel. No ventral hernia identified. No acute bony abnormality is appreciated. Advanced multilevel degenerative disc disease seen within the lumbar spine. No evidence seen for abdominal aortic aneurysm. Impression: 1. Moderate-sized hiatal hernia. 08/05/2017 [facility] [place] Hip bilat w pelvis and both lat hips DX EXAM: XR BILATERAL HIP 2 VIEWS DATE: 12/02/2016 4:05 PM CDT INDICATION: - M19.90 Unspecified osteoarthritis, unspecified site COMPARISON: None TECHNIQUE: AP and frogleg lateral views of the bilateral hips . DISCUSSION: Generalized diminished bone mineral density. No acute bone abnormality. No hip joint space narrowing or significant osteophyte formation. No sclerosis, erosions, or narrowing of the pubic symphysis or sacroiliac joints. Mild pelvic enthesopathy. IMPRESSION: 1. No acute bone abnormality identified. 2. No significant degenerative changes of the hips or sacroiliac joints. 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 COMPARISON: Thyroid ultrasound 07/22/2016. FINDINGS/TECHNIQUE: Ultrasound guided fine needle biopsy is requested for a 1.7 cm nodule in the inferior right thyroid lobe and a 1.1 cm complex solid and cystic nodule in the mid to superior left thyroid lobe reported on the comparison examination. The potential risks of the procedure were discussed with the patient including pain, bleeding, infection or damage to adjacent structures. The possibility of an insufficient sample and need for a repeat biopsy was also discussed with the patient. The patient was allowed to ask questions and agreed to proceed with the procedure. After informed consent was obtained the puncture site was sterilely prepped and anesthetized in the usual fashion. A 25-gauge needle was advanced into the 1.7 cm nodule in the right thyroid lobe and the solid portion of the 1.1 cm complex solid and cystic nodule in the left thyroid lobe using ultrasound guidance. 6 passes were made for each nodule. Aspirate was placed on glass slides and in preservative solution. These materials were sent to pathology for analysis. The patient tolerated the procedure well without immediate complication. IMPRESSION: Technically successful ultrasound guided fine needle biopsy of the 1.7 cm nodule in the inferior right thyroid lobe and the 1.1 cm complex solid and cystic nodule in the mid to superior left thyroid lobe. SL: 15 08/07/2016 [facility] [place] Thyroid US EXAM: US THYROID DATE: 07/22/2016 2:36 PM CDT INDICATION: E04.1 Nontoxic single thyroid nodule ADDITIONAL INFORMATION: None. COMPARISON: History of prior ultrasound 3 years ago at an outside facility. That exam is unavailable for comparison. TECHNIQUE: Multiplanar grayscale and color Doppler ultrasound images of the neck were obtained in the area of the thyroid. DISCUSSION: Thyroid parenchyma and vascularity: Background heterogeneous echogenicity with normal vascularity. Right thyroid size: 4.8 x 1.9 x 1.6 cm Left thyroid size: 3.7 x 1.1 x 1.4 cm Thyroid isthmus thickness: 0.19 cm Thyroid nodules: Within the inferior aspect of the right thyroid lobe, there is a heterogeneously hypoechoic nodule with some small anechoic cystic spaces and microcalcifications along with internal vascularity with the nodule measuring 1.7 x 1.0 x 1.5 cm. Within the mid right thyroid lobe, there is a 1.1 x 0.9 x 1.1 cm solid isoechoic and hypoechoic nodule containing microcalcifications and internal vascularity. In the medial anterior aspect of the mid right thyroid lobe, there is a predominately anechoic avascular thin-walled complex cystic lesion measuring 0.7 x 0.3 x 0.6 cm with some peripheral vascularity. Within the superior to mid left thyroid lobe, there is a predominately cystic complex nodule with mild calcifications and internal vascularity in the solid component of the lesion. This lesion measures 1.1 x 0.6 x 1.0 cm.. Cervical lymph nodes: No abnormal lymph nodes are seen in the [id number] of this exam. IMPRESSION: 1. Multinodular thyroid gland with four separate nodules identified as described above. Slight heterogeneity of the background echogenicity may represent underlying nonspecific thyroiditis. Clinical correlation is recommended 2. Fine-needle aspiration of the 1.7 cm nodule in the right thyroid lobe inferiorly as well as of the solid portion of the mid left thyroid lobe 1.1 cm nodule are recommended to exclude underlying malignancy. 3. Remainder of the nodules should be followed in 6-12 months time for surveillance. Reference: Steve MC, Ivan CB, Lucia QUISPE et al. Management of thyroid nodules detected at US: Society of Radiologists in Ultrasound consensus conference statement. Radiology. 2005; [phone]. 07/22/2016 [facility] Consultation Notes No Data Provided for This Section Discharge Summaries No Data Provided for This Section History and Physicals No Data Provided for This Section Vital Signs Vital Sign Value Date Comments Source Systolic (mm Hg) 154 10/25/2014 [facility] Diastolic (mm Hg) 82 10/25/2014 [facility] Respitory Rate 18 10/25/2014 [facility] Heart Rate 93 10/25/2014 [facility] Temperature Oral (F) 98.0 F 10/25/2014 [facility] Respitory Rate 18 10/25/2014 [facility] Heart Rate 98 10/25/2014 [facility] Systolic (mm Hg) 115 10/25/2014 [facility] Diastolic (mm Hg) 65 10/25/2014 [facility] Temperature Oral (F) 97.8 F 10/25/2014 [facility] Temperature Oral (F) 99 F 10/25/2014 [facility] Heart Rate 103 10/25/2014 [facility] Respitory Rate 18 10/25/2014 [facility] Systolic (mm Hg) 134 10/25/2014 [facility] Diastolic (mm Hg) 69 10/25/2014 [facility] Height 147.32 cm 10/24/2014 [facility] BMI Calculated 33.3 10/24/2014 [facility] Weight 72.273 10/24/2014 [facility] Weight 72.273 10/13/2014 [facility] BMI Calculated 33.3 10/13/2014 [facility] Height 147.32 cm 10/13/2014 [facility] Encounters Location Location Details Encounter Type Encounter Number Reason For Visit Attending Provider ADM Date DC Date Status Source [facility] OBS Observation Patient [id number] Michelle Brooks 10/24/2014 10/25/2014 [facility] [place] [facility] [id number] Marilu Edmonds 07/22/2016 07/23/2016 [facility] [place] [facility] [id number] Marilu Edmonds 08/07/2016 08/08/2016 [facility] [place] [facility] [id number] Quinn Guerrero 12/02/2016 2016 [facility] [place] [facility] [id number] Quinn Guerrero 08/05/2017 08/06/2017 [facility] [place] Procedures Procedure Code Date Perfomer Comments Source Hysterectomy [id number] [facility] Temporal artery biopsy [id number] [facility] [place] Hysterectomy [id number] [facility] [place] [id number] Temporal artery biopsy [id number] [facility] Hysterectomy [id number] [facility] [place] Temporal artery biopsy [id number] [facility] [place] Assessment and Plan Assessment and Plan Date Source Extracted from:Title: [facility] progress Note Author: Michaela Manjarrez MD Date: 10/25/14 [facility] Progress Note S: Patient doing well this morning. No complaints. passing flatus. Patient is ambulating slowly in the room. Pain well controlled on po meds O: Vitals Tmp(F) Tmp(C) Ttype BP MAP Pulse RR SpO2 FIO2 ETCO2 10/25 03:15 97.8 36.56 oral 115/65 --- 98 18 98 2.0L/m --- 10/24 23:15 99 37.22 oral 134/69 --- 103 18 98 2.0L/m --- 10/24 20:17 98 36.67 oral 124/69 --- 88 17 100 2.0L/m --- 10/24 15:42 97.0 36.11 oral 126/75 --- 88 -- 97 2.0L/m --- 08/24 13:47 94.4 34.67 axil 120/58 --- 68 -- 100 2.0L/m --- 24 Hr Tmax: 99F (37.22c) at 10/24 23:15 24 Hr Tmin: 94.4F (34.67c) at 10/24 13:47 36 Hr Tmax: 99F (37.22c) at 10/24 23:15 36 Hr Tmin: 94.4F (34.67c) at 10/24 13:47 [...] immediate post op-->1.2 this morning A/P: Ms. Cantor is POD#1 s/p Anterior Repair, Right Oophorectomy, [...] routine post op care. DC home today DEREK Brooks Addendum by Michelle Brooks MD on 10/25/2014 12:40 pt doing well, tolerated regular diet , ambulating well, no weakness, no dizziness, passing flatus Vitals stable, H/H 10/30 Cr 1.2 Pa: soft, goood BS, NT,ND, No CVA tenderness Pt failed voiding trial filled 300 cc void 300 cc PVR 300 cc DC home with yates and leg bag DC instructions given Post op care discussed with pt and in details Follow up in1 week Extracted from:Title: Clinical Document Author: Michelle Brooks MD Date: [...] 08/05/2014 for a cystocele. Pt feels bulge and pressure. Pt feels uncomfortable sitting with the bulge. Pt feels she voids well. Pt has to sit for some time to empty but feels empty at the end of it. Pt denies UTIs. Pt Voids every 2 hrs during the day and night. Pt feels bladder pressure and voids frequently. Pt says he may have [...] Tablet; TAKE 1 TABLET DAILY PRN; Therapy: (Recorded:[id number]) to Recorded Acetaminophen-Codeine 300-30 MG Oral Tablet; TAKE 1 TABLET BY MOUTH 3 TIMES A DAY NEEDED FOR PAIN; Therapy: 21Sep2014 to (Evaluate:[id number]); Last Rx:[id number] Ordered Atorvastatin Calcium 20 MG Oral Tablet; TAKE 1 TABLET DAILY AT BEDTIME. Replacing Pravastatin; Therapy: 08Aug2014 to (Last Rx:08Aug2014) Ordered Calcium 500 MG Oral Tablet; TAKE 1 TABLET with Main Meal of the day; Therapy: (Recorded:08Aug2014) to Recorded CoQ-10 50 MG Oral Capsule; TAKE 1 CAPSULE DAILY; Therapy: (Recorded:[id number]) to Recorded Lisinopril 20 MG Oral Tablet; TAKE 1 TABLET BY MOUTH DAILY; Therapy: 26Jan2013 to (Evaluate:[id number]) Requested for: 29Jun2014; Last Rx:[id number]; Status: ACTIVE - Retrospective Authorization Ordered Metoprolol Succinate ER 25 MG Oral Tablet Extended Release 24 Hour; TAKE 1 TABLET BY MOUTH DAILY; Therapy: 20May2012 to (Evaluate:[id number]) Requested for: 26Aug2014; Last Rx:[id number]; Status: ACTIVE - Retrospective Authorization Ordered Multi-Vitamin Oral Tablet; TAKE 1 TABLET DAILY; Therapy: (Recorded:12Jan2014) to Recorded Omeprazole 20 MG Oral Capsule Delayed Release; TAKE ONE CAPSULE BY MOUTH TWICE DAILY; Therapy: 14Dec2012 to (Evaluate:[id number]) Requested for: 28Jun2014; Last Rx:[id number]; Status: ACTIVE - Retrospective Authorization Ordered Premarin 0.625 MG/GM Vaginal Cream; Use 1 applicator intravaginally twice per week; Therapy: 05Aug2014 to (Evaluate:[id number]) Requested for: 09Aug2014; Last Rx:09Aug2014; Status: ACTIVE - Retrospective Authorization Ordered Probiotic Oral Capsule; TAKE 1 CAPSULE DAILY; Therapy: (Recorded:28Jan2012) to Recorded Vitamin D3 5000 UNIT Oral Capsule; 1 a day; Therapy: [id number] to Recorded Immunizations Influenza --- Series1: 20Dec2011; Series2: 20Jan2013; Series3: 03Jan2014 Past Medical History Denied: History of Diabetes [...] to bladder , bowel, ureters, urethra, nerves and vessels. The risk of retention, recurrence, reoperation, pain and dyspareunia were also discussed. Pt understands that [...] cystocele repair,Vault suspension possible oophorectomy, , cystoscopy and all other indicated procedures. 2. HTN: Pt on lisinopril and metoprolol as above. She is followed by [facility] 3. CKD: Cr 09/26 of 1.13. Will get repeat CMP prior to surgery 4. HLD: pt on atorvastatin 5. Hyperparathyroidism: followed by endocrine. Controlled with dietary phosphate restriction, oral calcium and Vit D. 6. HCM: up to date on colonoscopy and mammogram. Pap smears no longer indicated Tonja Pan MD PGY2 10/25/2014 [facility] Plan of Care No Data Provided for This Section Social History Social History Date Source Social History TypeResponse Smoking Status Former smoker; Type: Cigarettes; Stopped at age: 18; Exposure to Tobacco Smoke None; Cigarette Smoking Last 365 Days No; Reg Smoking Cessation Counseling No 10/24/2014 AARON Owen Social History TypeResponse Smoking Status Former smoker; Type: Cigarettes; Stopped at age: 18; Exposure to Tobacco Smoke None; Cigarette Smoking Last 365 Days No; Reg Smoking Cessation Counseling No 10/24/2014 AARON Phipps Social History TypeResponse Smoking Status Former smoker; Type: Cigarettes; Stopped at age: 18; Exposure to Tobacco Smoke None; Cigarette Smoking Last 365 Days No; Reg Smoking Cessation Counseling No 10/24/2014 [facility] Social History TypeResponse Smoking Status Former smoker; Type: Cigarettes; Exposure to Tobacco Smoke None; Cigarette Smoking Last 365 Days No; Reg Smoking Cessation Counseling No; Stopped at age: 18; entered on: 10/24/14 10/24/2014 XIANG Strauss Family History No Data Provided for This Section Advance Directives No Data Provided for This Section Functional Status No Data Provided for This Section
--- NOTE | 2018-09-21 10:15 | NUR ---
SEEN BY KELLI IN TRIAGE
[2018-09-21] MEDS ORDERED: ASPIRIN 81 MG CHEW TAB PO ONE (10:30)
--- NOTE | 2018-09-21 11:33 | Diagnostic Imaging Report ---
EXAMINATION: CHEST SINGLE (NOT PORTABLE) INDICATION: Chest pain COMPARISON: Chest radiograph 04/12/2011 FINDINGS: TUBES and LINES: None. LUNGS: The lung volumes are normal. No focal consolidation or pulmonary edema. PLEURA: No pleural effusion or pneumothorax. HEART AND MEDIASTINUM: The cardiomediastinal silhouette is normal in size and contour. There is a moderate hiatal hernia. BONES AND SOFT TISSUES: No acute fracture or dislocation. UPPER ABDOMEN: No free air under the diaphragm. IMPRESSION: No focal pneumonia or pulmonary edema. Moderate hiatal hernia. Signed by: Davina Toribio MD on 09/21/2018 11:30 AM
[2018-09-21 12:07] LABS: BASOPHILS # (AUTO) 0.1 (0.0-0.1); BASOPHILS % 1.2 % (0.0-1.0); EOSINOPHILS # (AUTO) 0.1 (0.0-0.4); EOSINOPHILS % 1.2 % (0.0-6.0); HEMATOCRIT 36.8 % (34.2-44.1); HEMOGLOBIN 12.1 g/dL (12.0-16.0); LYMPHOCYTES # (AUTO) 1.6 (1.0-3.2); LYMPHOCYTES % 30.6 % (18.0-39.1); MEAN CORPUSCULAR HEMOGLOBIN 29.4 pg (28-32); MEAN CORPUSCULAR HGB CONC 32.9 g/dL (31-35); MEAN CORPUSCULAR VOLUME 89.5 fL (81-99); MONOCYTES # (AUTO) 0.4 (0.2-0.8); MONOCYTES % 7.5 % (4.4-11.3); NEUTROPHILS % 59.1 % (38.7-80.0); PLATELET COUNT 280 x10e3/uL (140-360); RED BLOOD COUNT 4.11 x10e6/uL (3.6-5.1); RED CELL DISTRIBUTION WIDTH 12.5 % (11.7-14.4)
[2018-09-21 12:23] LABS: INR 0.92; PROTHROMBIN TIME 12.9 seconds (11.9-14.5)
[2018-09-21 12:24] LABS: PARTIAL THROMBOPLASTIN TIME 32.1 seconds (23.8-35.5)
[2018-09-21 12:30] LABS: ALBUMIN 4.1 g/dL (3.5-5.0); ALBUMIN/GLOBULIN RATIO 1.1 (0.8-2.0); ANION GAP 13.4 mmol/L (8-16); CREATININE, SERUM 1.12 mg/dL (0.57-1.11); MAGNESIUM 2.3 MG/DL (1.3-2.1); POTASSIUM 4.4 mmol/L (3.5-5.1)
[2018-09-21 12:39] LABS: CREATINE KINASE MB 0.6 ng/mL (0-5.0)
[2018-09-21 12:40] LABS: BILIRUBIN,URINE NEGATIVE (NEGATIVE); CLARITY,URINE CLEAR (CLEAR); COLOR,URINE YELLOW (YELLOW); KETONES,URINE NEGATIVE (NEGATIVE); LEUKOCYTE ESTERASE ,URINE NEGATIVE (NEGATIVE); NITRITE,URINE NEGATIVE (NEGATIVE); PROTEIN,URINE DIPSTICK TRACE (NEGATIVE); URINE UROBILINOGEN 0.2 mg/dL (0.2 - 1)
--- NOTE | 2018-09-21 12:51 | NUR ---
PATIENT TO ER ROOM 3 AT THIS TIME
[2018-09-21 12:56] LABS: BACTERIA,URINE MODERATE /HPF; EPITHELIAL CELLS,URINE MODERATE /LPF; WBC,URINE (MAN) 0-5 /HPF (0-5)
[2018-09-21 13:26] VITALS: BP 145/60
== END 2018-09-21 13:40 | disposition home or self-care (01) ==
LOC: ER 09:34
DX: R07.89 Other chest pain (principal); I10 Essential (primary) hypertension
CPT/HCPCS: 36415; 71045; 80053; 81001; 82550; 82553; 83735; 83880; 84484; 85025; 85610; 85730; 93005; 99284

== ENCOUNTER 2018-12-11 09:26 | Emergency (ER) | payer OTHER ==
[~2018-12-11] VITALS: Ht 147.3 cm; Wt 72.6 kg
[2018-12-11] MEDS ORDERED: ACETAMIN/BUTALBITAL/CAFFEINE TAB PO ONE (09:45)
[2018-12-11] MEDS ORDERED: METOCLOPRAMIDE HCL 10 MG/2ML VIAL IV ONE (09:45)
[2018-12-11] MEDS ORDERED: SODIUM CHLORIDE 0.9% 1000ML 1,000 ML IV ONE (09:45)
[2018-12-11] MEDS ORDERED: CLONIDINE HCL 0.1 MG TAB PO ONE (09:45)
[2018-12-11] MEDS ORDERED: DIPHENHYDRAMINE HCL INJ 50 MG/ML VIAL IV ONE (09:45)
[2018-12-11 10:32] LABS: BASOPHILS # (AUTO) 0.1 (0.0-0.1); BASOPHILS % 1.1 % (0.0-1.0); EOSINOPHILS # (AUTO) 0.1 (0.0-0.4); EOSINOPHILS % 1.8 % (0.0-6.0); HEMATOCRIT 35.8 % (34.2-44.1); HEMOGLOBIN 11.3 g/dL (12.0-16.0); LYMPHOCYTES # (AUTO) 1.8 (1.0-3.2); LYMPHOCYTES % 41.2 % (18.0-39.1); MEAN CORPUSCULAR HEMOGLOBIN 29.1 pg (28-32); MEAN CORPUSCULAR HGB CONC 31.6 g/dL (31-35); MEAN CORPUSCULAR VOLUME 92.3 fL (81-99); MONOCYTES # (AUTO) 0.3 (0.2-0.8); MONOCYTES % 7.6 % (4.4-11.3); NEUTROPHILS # (AUTO) 2.2 (2.1-6.9); NEUTROPHILS % 48.1 % (38.7-80.0); PLATELET COUNT 263 x10e3/uL (140-360); RED BLOOD COUNT 3.88 x10e6/uL (3.6-5.1); RED CELL DISTRIBUTION WIDTH 13.3 % (11.7-14.4)
[2018-12-11 10:53] LABS: ALBUMIN 3.9 g/dL (3.5-5.0); ALBUMIN/GLOBULIN RATIO 1.1 (0.8-2.0); ANION GAP 12.2 mmol/L (8-16); CALCIUM 9.8 mg/dL (8.4-10.2); CREATININE, SERUM 1.06 mg/dL (0.57-1.11); POTASSIUM 4.2 mmol/L (3.5-5.1)
[2018-12-11] MEDS ORDERED: LISINOPRIL20 MG PO (10:57)
[2018-12-11] MEDS ORDERED: METOPROLOL SUCC25 MG PO (10:57)
[2018-12-11] MEDS ORDERED: HYDRALAZINE HCL25 MG PO (10:57)
--- NOTE | 2018-12-11 11:01 | Diagnostic Imaging Report ---
Exam: Head CT without contrast History: Headache Comparison studies: Head CT 11/26/2016 Technique: Axial images were obtained from the skull base to the vertex. Coronal and sagittal images reconstructed from the axial data. Dose modulation, iterative reconstruction, and/or weight based adjustment of the mA/kV was utilized to reduce the radiation dose to as low as reasonably achievable. Radiation dose: Total DLP: 832 mGy*cm. Estimated effective dose: DLP x 0.015 Intravenous contrast: None Findings: Scalp: No abnormalities. Bones: No fractures, blastic or lytic lesions. Brain sulci: Appropriate for age. Ventricles: Normal in size and configuration. No hydrocephalus. Extra-axial spaces: No masses, no fluid collection. Parenchyma: No abnormal densities. No masses, acute hemorrhage, acute or chronic vascular insults. Sellar/suprasellar region: No abnormalities. Craniocervical junction: Patent foramen magnum. No Chiari one malformation. Incidental findings: Atherosclerotic calcifications in the carotid siphons. Chronic insult or changes in the partially imaged left maxillary sinus which is with peripheral mucosal thickening and chronic periosteal thickening. IMPRESSION: 1. No acute intracranial abnormalities. 2. No changes from the prior head CT of 11/26/2016 Signed by: Dr. Vinh Parsons M.D. on 12/11/2018 10:58 AM
[2018-12-11] MEDS ORDERED: FIORINAL 50-321 EACH PO (12:50)
== END 2018-12-11 13:28 | disposition home or self-care (01) ==
LOC: ER 09:26
DX: G43.111 Migraine with aura, intractable, with status migrainosus (principal); G44.211 Episodic tension-type headache, intractable; I10 Essential (primary) hypertension
CPT/HCPCS: 36415; 70450; 80053; 85025; 99284; J1200; J2765; J7030

== ENCOUNTER 2022-02-02 09:51 | Emergency (ER) | payer OTHER ==
[~2022-02-02] VITALS: Ht 147.3 cm; Wt 72.6 kg
[~2022-02-02 09:51] MED LIST changes: +FIORINAL 50-321 EACH PO; +HYDRALAZINE HCL25 MG PO; +LISINOPRIL20 MG PO; +METOPROLOL SUCC25 MG PO
[2022-02-02] MEDS ORDERED: GOLYTELY SOLU4000 M1 PO (10:55)
[2022-02-02] MEDS ORDERED: FLEET ENEMA133 ML PR (11:30)
== END 2022-02-02 12:10 | disposition home or self-care (01) ==
LOC: ER 09:58
DX: K59.00 Constipation, unspecified (principal); I12.9 Hypertensive chronic kidney disease with stage 1 through stage 4 chronic kidney disease, or unspecified chronic kidney disease; N18.9 Chronic kidney disease, unspecified; Z88.6 Allergy status to analgesic agent; Z88.1 Allergy status to other antibiotic agents; Z79.82 Long term (current) use of aspirin; Z79.899 Other long term (current) drug therapy; Z98.890 Other specified postprocedural states; Z87.440 Personal history of urinary (tract) infections
CPT/HCPCS: 74022; 99284

== ENCOUNTER 2023-09-03 10:27 | Emergency (ER) | payer MEDICARE, OTHER ==
[~2023-09-03] VITALS: Ht 147.3 cm; Wt 72.6 kg
[~2023-09-03 10:27] MED LIST changes: +FLEET ENEMA133 ML PR; +GOLYTELY SOLU4000 M1 PO
[2023-09-03 10:30] VITALS: TEMP 97.9
[2023-09-03 10:57] LABS: BASOPHILS % 0.4 % (0.0-1.0); EOSINOPHILS % 0.7 % (0.0-6.0); HEMOGLOBIN 11.3 g/dL (12.0-16.0); LYMPHOCYTES # (AUTO) 1.7 (1.0-3.2); LYMPHOCYTES % 36.4 % (18.0-39.1); MEAN CORPUSCULAR HGB CONC 33.2 g/dL (31-35); MEAN CORPUSCULAR VOLUME 93.2 fL (81-99); MONOCYTES # (AUTO) 0.3 (0.2-0.8); MONOCYTES % 6.7 % (4.4-11.3); NEUTROPHILS # (AUTO) 2.6 (2.1-6.9); NEUTROPHILS % 55.6 % (38.7-80.0); PLATELET COUNT 237 x10e3/uL (140-360); RED BLOOD COUNT 3.65 x10e6/uL (3.6-5.1); RED CELL DISTRIBUTION WIDTH 12.5 % (11.7-14.4); WHITE BLOOD COUNT 4.61 x10e3/uL (4.8-10.8)
[2023-09-03] MEDS: SODIUM CHLORIDE 0.9% 1000ML 1,000 ML IV ONE (11:15)
[2023-09-03] MEDS: METOCLOPRAMIDE HCL 10 MG/2ML VIAL IV ONE (11:15)
[2023-09-03 11:24] LABS: ALBUMIN/GLOBULIN RATIO 1.1 (0.8-2.0); ANION GAP 16.3 mmol/L (8-16); BILIRUBIN,TOTAL 0.8 mg/dL (0.2-1.2); CREATININE, SERUM 1.23 mg/dL (0.57-1.11); POTASSIUM 4.3 mmol/L (3.5-5.1); TOTAL PROTEIN 7.5 g/dL (6.5-8.1)
[2023-09-03 11:29] LABS: BILIRUBIN,URINE SMALL (NEGATIVE); CLARITY,URINE CLOUDY (CLEAR); COLOR,URINE YELLOW (YELLOW); GLUCOSE, URINE NEGATIVE (NEGATIVE); KETONES,URINE TRACE (NEGATIVE); LEUKOCYTE ESTERASE ,URINE NEGATIVE (NEGATIVE); NITRITE,URINE NEGATIVE (NEGATIVE); PH,URINE 6 (5 - 7); PROTEIN,URINE DIPSTICK NEGATIVE (NEGATIVE); URINE UROBILINOGEN 0.2 mg/dL (0.2 - 1)
[2023-09-03 11:51] LABS: BACTERIA,URINE MODERATE /HPF; EPITHELIAL CELLS,URINE MODERATE /LPF; RBC,URINE 0-5 /HPF (0-5)
[2023-09-03] MEDS ORDERED: REGLAN10 MG PO (12:53)
[2023-09-03 13:00] VITALS: PULSE 61; RESP 18; O2SAT 100
== END 2023-09-03 13:47 | disposition home or self-care (01) ==
LOC: ER 10:34
DX: U07.1 COVID-19 (principal); R11.10 Vomiting, unspecified; I12.9 Hypertensive chronic kidney disease with stage 1 through stage 4 chronic kidney disease, or unspecified chronic kidney disease; N18.9 Chronic kidney disease, unspecified; E78.5 Hyperlipidemia, unspecified; Z88.1 Allergy status to other antibiotic agents; Z88.5 Allergy status to narcotic agent; Z79.899 Other long term (current) drug therapy
CPT/HCPCS: 36415; 80053; 81001; 83690; 85025; 99283; J2765; J7030